=== PATIENT | male | born 1965 | race Caucasian/White ===

== ENCOUNTER 2019-07-29 14:01 | Outpatient (CLI) | payer OTHER ==
--- NOTE | 2019-07-29 15:05 | RAD ---
EXAM: Chest 2 views: HISTORY: Rheumatoid arthritis COMPARISON: None. FINDINGS: There is a normal-sized cardiomediastinal silhouette. There is no evidence of consolidation, mass, or pleural effusion. Degenerative changes are seen in the spine. IMPRESSION: No evidence of acute cardiopulmonary disease
== END 2019-07-29 14:02 | disposition home or self-care (01) ==
LOC: BICRAD 14:01
PROVIDERS: ATTEND Internal Medicine Rheumatology
DX: M05.79 Rheumatoid arthritis with rheumatoid factor of multiple sites without organ or systems involvement (principal)
CPT/HCPCS: 71046